=== PATIENT | male | born 1995 | race Caucasian/White ===

== ENCOUNTER 2017-08-03 20:26 | Emergency (ER) | payer OTHER ==
[2017-08-03] MEDS: PERCOCET 5MG/325MG TAB PO (22:05)
[2017-08-03] MEDS: OXYCODONE/APAP 5MG/325MG(BULK FOR ED) 1 TABLET PO (23:52)
== END 2017-08-03 23:56 | disposition home or self-care (01) ==
LOC: M ED 20:26
DX: S90.32XA Contusion of left foot, initial encounter (principal); W20.8XXA Other cause of strike by thrown, projected or falling object, initial encounter; Y92.89 Other specified places as the place of occurrence of the external cause; Z79.899 Other long term (current) drug therapy; Z88.1 Allergy status to other antibiotic agents
CPT/HCPCS: 73630